=== PATIENT | female | born 1950 | race Caucasian/White ===

== ENCOUNTER 2018-06-14 14:24 | Outpatient (CLI) | payer MEDICARE, OTHER ==
[2015-01-27 17:35] VITALS: BP 147/89
== END 2018-06-14 14:25 ==
LOC: RT 14:24
PROVIDERS: ATTEND Clinical Nurse Specialist Medical-Surgical
DX: M54.5 Low back pain (principal); E66.9 Obesity, unspecified; N95.9 Unspecified menopausal and perimenopausal disorder; I10 Essential (primary) hypertension; E11.9 Type 2 diabetes mellitus without complications; E03.9 Hypothyroidism, unspecified

== ENCOUNTER 2019-01-21 09:17 | Outpatient (CLI) | payer MEDICARE, OTHER ==
[2015-01-27 17:35] VITALS: BP 147/89
[2019-02-04 15:30] LABS: eGFR (Non-African) > 60
== END 2019-01-21 09:22 | disposition home or self-care (01) ==
LOC: LAB 09:17
PROVIDERS: ATTEND Clinical Nurse Specialist Medical-Surgical
DX: M54.5 Low back pain (principal); E66.9 Obesity, unspecified; N95.9 Unspecified menopausal and perimenopausal disorder; I10 Essential (primary) hypertension; E11.9 Type 2 diabetes mellitus without complications; E03.9 Hypothyroidism, unspecified; Z68.33 Body mass index [BMI] 33.0-33.9, adult
CPT/HCPCS: 36415; 80053; 82465; 83735; 84100; 84550

== ENCOUNTER 2019-04-08 08:11 | Outpatient (CLI) | payer MEDICARE, OTHER ==
[2015-01-27 17:35] VITALS: BP 147/89
[2019-04-08 09:07] LABS: MAGNESIUM 1.6 mIU/l (1.6-2.3); eGFR (Non-African) > 60
[2019-04-08 09:08] LABS: HDL 40 mg/dL (>40)
== END 2019-04-08 08:13 ==
LOC: LAB 08:11
PROVIDERS: ATTEND Clinical Nurse Specialist Medical-Surgical
DX: M54.5 Low back pain (principal); E66.9 Obesity, unspecified; Z68.33 Body mass index [BMI] 33.0-33.9, adult; N95.9 Unspecified menopausal and perimenopausal disorder; I10 Essential (primary) hypertension; E11.9 Type 2 diabetes mellitus without complications; E03.9 Hypothyroidism, unspecified
CPT/HCPCS: 36415; 80053; 80061; 83735; 84100; 84550

== ENCOUNTER 2019-05-26 08:32 | Outpatient (CLI) | payer MEDICARE, OTHER ==
[2015-01-27 17:35] VITALS: BP 147/89
[2019-05-26 09:31] LABS: eGFR (Non-African) > 60
[2019-05-26 09:32] LABS: MAGNESIUM 1.4 mIU/l (1.6-2.3)
== END 2019-05-26 08:37 ==
LOC: LAB 08:32
PROVIDERS: ATTEND Clinical Nurse Specialist Medical-Surgical
DX: M54.5 Low back pain (principal); N95.9 Unspecified menopausal and perimenopausal disorder; E03.9 Hypothyroidism, unspecified; E66.9 Obesity, unspecified; I10 Essential (primary) hypertension; E11.9 Type 2 diabetes mellitus without complications; Z68.33 Body mass index [BMI] 33.0-33.9, adult
CPT/HCPCS: 36415; 80053; 82465; 83735; 84100; 84550

== ENCOUNTER 2019-07-30 09:26 | Outpatient (CLI) | payer MEDICARE, OTHER ==
[2015-01-27 17:35] VITALS: BP 147/89
[2019-07-30 10:32] LABS: eGFR (Non-African) > 60
[2019-07-30 10:33] LABS: MAGNESIUM 1.2 mIU/l (1.6-2.3)
== END 2019-07-30 09:31 ==
LOC: LAB 09:26
PROVIDERS: ATTEND Clinical Nurse Specialist Medical-Surgical
DX: M54.5 Low back pain (principal); N95.9 Unspecified menopausal and perimenopausal disorder; I10 Essential (primary) hypertension; E11.9 Type 2 diabetes mellitus without complications; E03.9 Hypothyroidism, unspecified; E66.9 Obesity, unspecified; Z68.33 Body mass index [BMI] 33.0-33.9, adult
CPT/HCPCS: 36415; 80053; 82465; 83735; 84100; 84550